=== PATIENT | male | born 1965 | race Caucasian/White ===

== ENCOUNTER 2023-07-13 09:32 | Emergency (ER) | payer BC, SELFPAY ==
[2023-07-13] VITALS (14 sets, daily range): BP systolic 103–132; BP diastolic 55–86; PULSE 48–55; RESP 10–21; TEMP 36.5–36.6; O2SAT 98–100
--- NOTE | ~2023-07-13 | CT_ITS ---
EXAMINATION: CT brain wo con DATE: 07/13/2023 12:52 INDICATION: Bilateral leg numbness. TECHNIQUE: Computed tomography (CT) of the head was performed without intravenous contrast. The mA wa s adjusted according to patient size. Iterative reconstruction technique was employed. The dose-lengt h product was 605.33 mGy-cm. COMPARISON: None FINDINGS: There is no intracranial hemorrhage, acute infarction, or abnormal intracranial mass lesion . The ventricles are normal in size. There is mild mucosal thickening in the paranasal sinuses. The m astoid air cells are normal. The orbits are normal. IMPRESSION: 1. Normal brain. Reviewed, dictated and finalized at location E. S SPECIAL AGENT IMPRESSION: 1. Normal brain.
--- NOTE | ~2023-07-13 | CT_ITS ---
EXAMINATION: CT lumbar spine wo con DATE: 07/13/2023 12:52 INDICATION: Bilateral leg numbness. TECHNIQUE: Computed tomography (CT) of the lumbar spine was performed without intravenous contrast. A utomated exposure control and iterative reconstruction technique were employed. The dose-length produ ct was 849.79 mGy-cm. COMPARISON: None FINDINGS: There are scattered diverticula in the colon. There is wall thickening of the sigmoid colon . Bone alignment is normal. Vertebral body heights are normal. There is mildly decreased disc height at L4-L5 and moderately decreased disc height at L5-S1. The following disc levels are specifically di scussed: L1-L2: The disc does not extend beyond the endplate margin. There is moderate right and mild left fac et joint osteoarthritis. There is no neural foraminal stenosis. There is no central canal stenosis. L2-L3: The disc is bulging. There is mild bilateral facet joint osteoarthritis. There is mild bilater al neural foraminal stenosis. There is mild central canal stenosis. L3-L4: The disc is bulging. There is moderate bilateral facet joint osteoarthritis. There is mild maximilian ateral neural foraminal stenosis. There is mild central canal stenosis. L4-L5: The disc is bulging. There is severe bilateral facet joint osteoarthritis. There is moderate b ilateral neural foraminal stenosis. There is mild central canal stenosis. L5-S1: The disc is bulging. There is mild right and severe left facet joint osteoarthritis. There is moderate left neural foraminal stenosis. There is mild central canal stenosis. IMPRESSION: 1. Moderate lumbar spondylosis. Reviewed, dictated and finalized at location E. MAN
--- NOTE | ~2023-07-13 | MR_ITS ---
EXAMINATION: MR thoracic spine wo/w con, MR lumbar spine wo/w con DATE: 07/13/2023 16:28 INDICATION: Sensory changes with subjective decreased sensation below the waist extending into the bi lateral lower extremities. TECHNIQUE: Magnetic resonance imaging (MRI) of the thoracic and lumbar spine was performed without an d with 17 mL Multihance intravenous contrast. The line 1. Sagittal localizer T1-weighted FSE of the cervicothoracic spine was obtained. Sequences of the tho racic spine included sagittal T2-weighted FSE, sagittal fluid sensitive FSE STIR, sagittal T1-weighte d FSE, axial T1-weighted FSE and axial T2-weighted FSE. Patient terminated the study before the post contrast axial and sagittal sequences the thoracic spine were able to be obtained. 2. Sequences of the lumbar spine included sagittal T2-weighted FSE, sagittal T2-weighted FS FSE, and sagittal and axial T1-weighted FSE. Postcontrast sequences included axial T2-weighted FSE and sagitta l T1-weighted FS FSE. COMPARISON: None FINDINGS: Thoracic spine: Alignment is normal.Vertebral body heights are normal. Small Schmorl's node along the superior endpla daylin of T8 and T9. There are a few T1 and T2 hyperintense hemangiomas at T6, T8 and T11. Marrow signal is otherwise normal. Disc heights are normal. Very small left paracentral disc protrusions at T2-T3 and T6-T7. There is no central canal stenosis in the thoracic spine. There is mild scattered thoracic facet osteoarthritis with no neural foraminal stenosis. There is normal signal in the thoracic cord. Lumbar spine: Alignment is normal. Vertebral body heights are normal. Marrow signal is normal aside from an additio nal T1 and T2 hyperintense hemangioma at L1. Mild disc height loss at L3-L4, at L4-L5 and mild to mod erate disc height loss at L5-S1. The conus medullaris terminates at L1-L2. There is normal signal in the caudal spinal cord. No abnormally enhancing lesions identified. Paravertebral soft tissues are un remarkable. The following disc levels are specifically discussed: T12-L1: Annular fissure and small disc extrusion which extends from the left and right paracentral re gions with disc material extending up to 3 mm cephalad and caudal to the level of the endplate margin s. There is mild bilateral facet joint osteoarthritis. There is no neural foraminal stenosis. There i s mild central canal stenosis. L1-L2: The disc does not extend beyond the endplate margin. There is mild bilateral facet joint osteo arthritis. There is no neural foraminal stenosis. There is no central canal stenosis. L2-L3: Small bilateral disc protrusions. There is mild bilateral facet joint osteoarthritis. There is mild bilateral neural foraminal stenosis. There is no central canal stenosis. L3-L4: Disc is mildly bulging. There is moderate bilateral facet joint osteoarthritis. There is mild left and mild to moderate right neural foraminal stenosis. There is mild central canal stenosis. L4-L5: Disc is bulging. There is moderate left and severe right facet joint osteoarthritis. There is moderate bilateral neural foraminal stenosis. There is mild central canal stenosis. L5-S1: Disc is bulging. There is mild right and moderate left facet joint osteoarthritis. There is mi ld right and moderate to severe left neural foraminal stenosis. There is no central canal stenosis. IMPRESSION: 1. Minimal thoracic and mild to moderate lumbar spondylosis. Reviewed, dictated and finalized at location A. ING MANAGER IMPRESSION: 1. Minimal thoracic and mild to moderate lumbar spondylosis.
--- NOTE | ~2023-07-13 | MR_ITS ---
EXAMINATION: MR cervical spine wo/w con DATE: 07/13/2023 16:27 INDICATION: Sensory changes TECHNIQUE: Magnetic resonance imaging (MRI) of the cervical spine was performed. Patient refused to c omplete the exam and imaging was terminated prior to the planned administration of intravenous contra st. Sequences included sagittal T2-weighted FSE, sagittal T2-weighted FS FSE, sagittal T1-weighted FS E, axial MERGE, axial T1-weighted FSE and axial T2-weighted FSE. COMPARISON: None FINDINGS: Bone alignment is normal. Vertebral body heights are normal. Bone marrow signal intensity is normal . Mild disc height loss at C4-C5 and C5-C6 disc height loss at C3-C4. Annular fissures at C5-C6 C7. C ord signal intensity is normal. Cervical soft tissues are unremarkable. The following disc levels are specifically discussed: C2-C3: The disc does not extend beyond the endplate margin. There is mild bilateral uncovertebral liza nt osteoarthritis. There is moderate right and severe left facet joint osteoarthritis. There is mild bilateral neural foraminal stenosis. There is no central canal stenosis. C3-C4: Disc is bulging. There is moderate bilateral uncovertebral joint osteoarthritis. There is mild right and severe left facet joint osteoarthritis. There is moderate bilateral neural foraminal steno sis. There is mild central canal stenosis with flattening of the ventral surface of the cord. C4-C5: Disc is bulging superimposed small central disc protrusion which indents the central ventral s urface of the cord. There is moderate bilateral uncovertebral joint osteoarthritis. There is moderate right and severe left facet joint osteoarthritis. There is moderate bilateral neural foraminal steno sis. There is mild to moderate central canal stenosis. C5-C6: Disc is bulging. There is moderate bilateral uncovertebral joint osteoarthritis. There is mode rate right and severe left facet joint osteoarthritis. There is mild to moderate bilateral neural for aminal stenosis. There is mild central canal stenosis defects. C6-C7: Small central disc protrusion. There is mild right and moderate left uncovertebral joint osteo arthritis. There is mild left and moderate right facet joint osteoarthritis. There is mild bilateral neural foraminal stenosis. There is mild central canal stenosis. C7-T1: The disc does not extend beyond the endplate margin. There is no uncovertebral joint osteoarth ritis. There is mild left and moderate right facet joint osteoarthritis. There is mild left neural fo raminal stenosis. There is no central canal stenosis. IMPRESSION: 1. Mild cervical stenosis. Reviewed, dictated and finalized at location A. STITCHING MACHINE COLLAR FELLER IMPRESSION: 1. Mild cervical stenosis.
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
[2023-07-13 13:00] LABS: Basophils Percent Auto 0.2 % (0.2-1.2); Eosinophils Percent Auto 0.8 % (0-4.4); Hematocrit 40.5 % (42.0-52.0); Hemoglobin 13.8 g/dL (14.0-18.0); Immature Granulocyte Absolute 0.02 K/mm3 (0.00-0.031); Immature Granulocyte Percent A 0.4 % (0-0.5); Lymphocytes Absolute Auto 1.64 K/mm3 (0.9-3.2); Lymphocytes Percent Auto 34.5 % (18.3-44.2); Mean Corpuscular HGB Conc 34.1 g/dl (32-36); Mean Corpuscular Hemoglobin 29.6 pg (26-34); Mean Corpuscular Volume 86.9 fl (80-100); Mean Platelet Volume 9.8 fl (7.4-10.4); Monocytes Absolute Auto 0.3 K/mm3 (0.1-0.6); Monocytes Percent Auto 5.7 % (2.6-8.5); Neutrophils Absolute Auto 2.8 K/mm3 (1.3-6.7); Neutrophils Percent Auto 58.4 % (45.5-73.1); Platelet Count Result 200 k/mm3 (150-375); Red Blood Count 4.66 M/mm3 (4.6-6.20); Red Cell Distribution Width 13.3 % (11.5-14.5); White Blood Count 4.8 K/mm3 (4.5-10.0)
[2023-07-13 13:01] LABS: Appearance Urine Clear (Clear); Bilirubin Urine Negative (Negative); Blood Urine Negative (Negative); Color Urine Yellow (Yellow); Glucose Urine UA Negative (Negative); Ketones Urine Negative (Negative); Leukocyte Esterase Ur Negative LEU/UL (Negative); Nitrate Urine Negative (Negative); Protein Urine Negative (Negative); Specific Grav Ur 1.008 (1.001-1.035)
[2023-07-13 13:05] LABS: Add Urine Microscopic? NO
[2023-07-13 13:10] LABS: Alanine Aminotransferase 23 U/L (6-50); Albumin Level 3.9 g/dL (3.5-5.1); Alkaline Phosphatase 95 U/L (38-126); Anion Gap 7 mmol/L (8-16); Aspartate Amino Transferase 25 U/L (17-59); Bilirubin,Total 0.6 mg/dL (0.2-1.3); Blood Urea Nitrogen 10 mg/dL (9-20); Calcium 8.8 mg/dL (8.4-10.2); Carbon Dioxide 28 mmol/L (22-30); Chloride 106 mmol/L (98-107); Estimated CRCL calculation 103 ml/min; Estimated Glomerular Filt Rate > 60; Glucose 87 mg/dL (65-110); Potassium 4.1 mmol/L (3.4-5.0); Prothrombin Time 13.3 Seconds (11.1-14.7); Sodium 141 mmol/L (137-145)
[2023-07-13 13:11] LABS: Partial Thromboplastin Time 42.9 SECONDS (22.3-36.8)
[2023-07-13 13:54] LABS: CRP < 0.5 mg/dL (<1.0)
[2023-07-13 13:58] LABS: Immunoglobulin A 138 mg/dL (70-400); Immunoglobulin G 774 mg/dL (700-1600); Immunoglobulin M 125 mg/dL (40-230)
--- NOTE | 2023-07-13 13:59 | PC.NURSE ---
MRI questionnaire filled out by patient. Susi from MRI aware
[2023-07-13 14:01] LABS: Erythrocyte Sedimentation Rate 44 mm/hr (0-20)
--- NOTE | 2023-07-13 16:23 | WPDCN ---
Assessment and Plan Assessment and plan (1) Paresthesia of bilateral legs: Code(s): R20.2 - Paresthesia of skin Status: Acute Plan 58yoM with sudden onset of acute bilateral LE sensory changes. These symptoms are not consistent with any lumbar pathology given the absence of low back or radiating leg pains. Recommend Neurology consult, they have already been contacted by ED provider, and defer workup to them. MRI C spine has been completed, thoracic and brain MRI's are still pending. C spine MRI shows central disc protrusion vs osteophyte complex causing moderate spinal stenosis at C4-5 but there is no T2 signal changes in the spinal cord at this level. No urgent neurosurgical intervention indicated based on results thus far, please notify us should there be any other findings or concern that may need surgical intervention. This case was discuss with my Attending Dr. Marilou BENEDICT Data of Consult Date/Time: 07/13/23 16:24 Primary Care Provider: Tan Montano, Consult Narrative Narrative: Albino Gray is a 58 year old male we were contacted by ER who presented with acute sensory changes in his bilateral legs today. History obtained via communication with ER attending as patient is currently in the MRI scanner. Patient awoke in his usual state today and noticed distal right LE numbness and tingling and then same symptoms occuring in his entire left LE shortly there after, including his perineal region and penis. He denied any low back pain or radicular leg pains. We were consulted after a CT lumbar study was obtained showing degenerative changes, mainly at L5-S1, but no obvious significant stenosis. The patient was bladder scanned in the ER, post-residual was negative after he voided. He has recent hx for Flu A, diagnosed at urgent care on 07/08. It's reported the patient has brisk LE symptoms and normal rectal tone. Meds Home Medications and Allergies Allergies Allergy/AdvReac Type Severity Reaction Status Date / Time metronidazole [From Flagyl] AdvReac Vomiting Verified 07/13/23 09:44 Vital Signs Vital Signs - 24 hr 07/13/23 09:33 07/13/23 10:35 07/13/23 10:45 Temperature 97.7 F Pulse Rate 55 L 48 L 51 L Respiratory Rate 17 14 10 L Blood Pressure 111/80 105/74 Pulse Oximetry 100 98 99 Oxygen Delivery Room Air 07/13/23 10:47 07/13/23 10:48 07/13/23 11:00 Temperature Pulse Rate 48 L 50 L 48 L Respiratory Rate 12 11 L 12 Blood Pressure 116/72 Pulse Oximetry 98 98 99 Oxygen Delivery 07/13/23 11:02 07/13/23 11:03 07/13/23 12:50 Temperature Pulse Rate 49 L 49 L 51 L Respiratory Rate 20 14 21 H Blood Pressure 109/55 L 103/56 L Pulse Oximetry 98 99 98 Oxygen Delivery Results Labs 07/13/23 12:54 07/13/23 12:54 Labs: Short CBC 07/13/23 Range/Units 12:54 WBC 4.8 (4.5-10.0) K/mm3 Hgb 13.8 L (14.0-18.0) g/dL Hct 40.5 L (42.0-52.0) % Plt Count 200 (150-375) k/mm3 BMP 07/13/23 12:54 Sodium 141 Potassium 4.1 Chloride 106 Carbon Dioxide 28 BUN 10 Creatinine 0.70 Glucose 87 Calcium 8.8 Liver Function 07/13/23 Range/Units 12:54 Total Bilirubin 0.6 (0.2-1.3) mg/dL AST 25 (17-59) U/L ALT 23 (6-50) U/L Alkaline Phosphatase 95 (38-126) U/L Albumin 3.9 (3.5-5.1) g/dL Urine 07/13/23 Range/Units 12:54 Urine Color Yellow (Yellow) Urine Appearance Clear (Clear) Urine pH 8.0 (5.0-9.0) Ur Specific [place] 1.008 (1.001-1.035) Urine Protein Negative (Negative) mg/dL Urine Glucose (UA) Negative (Negative) mg/dL
--- NOTE | 2023-07-13 17:15 | WPDNEUROPN ---
Subjective Date/time seen: 07/13/23 17:15 Interval history: Patient's MRI cervical, thoracic, and lumbar spine came back without any cord signal change, so seems less likely to be transverse myelitis. Still considering Guillain [place] syndrome. Unfortunately patient cannot have LP due to him receiving Plavix, so that would have be done tomorrow. If this is GBS, then I am hesitant to start IVIG since he has had prior TIAs and has a history of CAD. IVIG increases his risk for additional thrombotic events. Plasmapheresis would be another option for GBS, which unfortunately we do not do at [place]. Therefore, I would recommend transfer to a tertiary care center for further evaluation and treatment. Objective Data Vital Signs Vital Signs: Vital Signs - 24 hr 07/13/23 09:33 07/13/23 10:35 07/13/23 10:45 Temperature 36.5 C Pulse Rate 55 L 48 L 51 L Respiratory Rate 17 14 10 L Blood Pressure 111/80 105/74 Pulse Oximetry 100 98 99 Oxygen Delivery Room Air 07/13/23 10:47 07/13/23 10:48 07/13/23 11:00 Temperature Pulse Rate 48 L 50 L 48 L Respiratory Rate 12 11 L 12 Blood Pressure 116/72 Pulse Oximetry 98 98 99 Oxygen Delivery 07/13/23 11:02 07/13/23 11:03 07/13/23 12:50 Temperature Pulse Rate 49 L 49 L 51 L Respiratory Rate 20 14 21 H Blood Pressure 109/55 L 103/56 L Pulse Oximetry 98 99 98 Oxygen Delivery Meds/Results Radiology Results: ITS Impressions Head CT 07/13/23 12:52 IMPRESSION: 1. Normal brain. Lumbar Spine CT 07/13/23 12:58 IMPRESSION: 1. Moderate lumbar spondylosis. Cervical Spine MRI 07/13/23 16:28 IMPRESSION: 1. Mild cervical stenosis. ADDENDUM: 07/13/23 [id number] ADDENDUM: The technique section incorrectly states that the study was terminated prior to planned administration of intravenous contrast. The study was performed in conjunction with additional MRI of the thoracic and lumbar spine and patient did receive 17 mL Multihance intravenous contrast. Postcontrast imaging was obtained of the thoracic and lumbar spine. The patient terminated the study prior to obtaining the planned postcontrast images in the cervical spine. Lumbar Spine MRI 07/13/23 16:42 IMPRESSION: 1. Minimal thoracic and mild to moderate lumbar spondylosis. Thoracic Spine MRI 07/13/23 16:42 IMPRESSION: 1. Minimal thoracic and mild to moderate lumbar spondylosis. Labs Labs: Laboratory Results - last 24 hr 07/13/23 07/13/23 12:54 13:34 WBC 4.8 RBC 4.66 Hgb 13.8 L Hct 40.5 L MCV 86.9 MCH 29.6 MCHC 34.1 RDW 13.3 Plt Count 200 MPV 9.8 Immature Gran % (Auto) 0.4 Neut % (Auto) 58.4 Lymph % (Auto) 34.5 [place] % (Auto) 5.7 Eos % (Auto) 0.8 Baso % (Auto) 0.2 Lymph # (Auto) 1.64 [place] # (Auto) 0.3 Eos # (Auto) 0.0 Baso # (Auto) 0.0 Abs Immat Gran (auto) 0.02 Absolute Neuts (auto) 2.8 Absolute Nucleated RBC 0.0 Nucleated RBC % 0.0 ESR 44 H PT 13.3 INR 1.0 APTT 42.9 H Sodium 141 Potassium 4.1 Chloride 106 Carbon Dioxide 28 Anion Gap 7 L BUN 10 Creatinine 0.70 Estim Creat Clear Calc 103 Estimated GFR > 60 Glucose 87 Calcium 8.8 Magnesium 2.0 Total Bilirubin 0.6 AST 25 ALT 23 Alkaline Phosphatase 95 C-Reactive Protein < 0.5 Total Protein 7.0 Albumin 3.9 Urine Color Yellow Urine Appearance Clear Urine pH 8.0 Ur Specific [place] 1.008 Urine Protein Negative Urine Glucose (UA) Negative Urine Ketones Negative Ur Blood (Man) Negative Urine Nitrate Negative Urine Bilirubin Negative Urine Urobilinogen 1.0 Leukocyte Esterase Rfl Negative IgG 774 IgA 138 IgM 125
--- NOTE | 2023-07-13 17:18 | WPDNEURCNPN ---
Assessment and Plan Assessment and plan (1) Paresthesia of bilateral legs: Code(s): R20.2 - Paresthesia of skin Status: Acute Plan Mr. Gray is a 58 year male with a history of prior TIAs, CAD presenting with bilateral lower extremity paraesthesias. My primary concern is Guillain [place] syndrome vs transverse myelitis. Patient's MRI cervical, thoracic, and lumbar spine came back without any cord signal changes, so seems less likely to be transverse myelitis (although could still be in the acute phase of TM). Also with his exam, he has more length dependent decrease in sensation up to his thighs rather than true sensory level, which is more suggestive of GBS rather than myelitis. 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 Fortunately he has good strength still in the lower extremities. Unfortunately patient cannot have LP today due to him receiving Plavix, so that would have be done tomorrow. If this is GBS, then I am hesitant to start IVIG since he has had prior TIAs and has a history of CAD/CT. IVIG increases his risk for additional thrombotic events. Plasmapheresis would be another option for GBS, which unfortunately we do not do at [place]. Therefore, I would recommend transfer to a tertiary care center for further evaluation and treatment. I have discussed plan with patient and he is agreeable as well. Consult date: 07/13/23 Reason for consult: Lower extremity parasthesias HPI: Albino Gray is a 58 year old male with a history of multiple TIAs and CAD in the past presenting due to lower extremity paraesthesias. Patient felt fine when he woke up today. He went about his normal schedule. In the afternoon he was sitting in a chair. He started to get up, when he noticed that he had numbness from his right knee up to the inguinal area. Slowly, he also developed numbness in the left foot that progressed up to the entire leg. When he presented to [facility] ED, he had complete numbness in both lower extremities as well as the genital/perineal region. He has not had any bladder or bowel incontinence, but he does report that it is difficult for him to void the last few drops of urine. He has not had a BM yet today. He denies any weakness in the lower extremities, but is having trouble with his balance, and therefore having difficulty with walking. He denies any symptoms in his upper extremities. He has not had any vaccinations in the past few months. He did have flu last week with fever and URI symptoms. In the ED, he had CT head that was normal. CT lumbar spine showed moderate spondylosis but no acute findings. LP was recommended but unable to be done since patient had taken Plavix today. MRI of the complete spine done with and without contrast. No signal change noted in the spinal cord, no evidence of contrast enhancement. MRI cervical spine showed mild cervical stenosis and MRI thoracic/lumbar spine showed minimal thoracic spondylosis and mild to moderate lumbar spondylosis. Of note, patient has a history of TIAs in the past as well as CAD, and CT. Review of Systems Review of Systems: All systems reviewed & are unremarkable except as noted in HPI and below Meds Home Medications and Allergies Allergies Allergy/AdvReac Type Severity Reaction Status Date / Time metronidazole [From Flagyl] AdvReac Vomiting Verified 07/13/23 09:44 Vital Signs Vital Signs - 24 hr 07/13/23 09:33 07/13/23 10:35 07/13/23 10:45 Temperature 36.5 C Pulse Rate 55 L 48 L 51 L Respiratory Rate 17 14 10 L Blood Pressure 111/80 105/74 Pulse Oximetry 100 98 99 Oxygen Delivery Room Air 07/13/23 10:47 07/13/23 10:48 07/13/23 11:00 Temperature Pulse Rate 48 L 50 L 48 L Respiratory Rate 12 11 L 12 Bl
--- NOTE | 2023-07-13 19:04 | PC.NURSE ---
attempted to call report, left message on [employer]el[employer] phone
== END 2023-07-13 20:34 | disposition short-term general hospital (02) ==
LOC: ANHED 12:26
PROVIDERS: Emergency Provider Student in an Organized Health Care Education/Training Program; PCP Internal Medicine
DX: R20.2 Paresthesia of skin (principal); I25.10 Atherosclerotic heart disease of native coronary artery without angina pectoris; M21.372 Foot drop, left foot; Z86.73 Personal history of transient ischemic attack (TIA), and cerebral infarction without residual deficits; Z79.02 Long term (current) use of antithrombotics/antiplatelets; M47.816 Spondylosis without myelopathy or radiculopathy, lumbar region; M47.814 Spondylosis without myelopathy or radiculopathy, thoracic region; M48.02 Spinal stenosis, cervical region
CPT/HCPCS: 36415; 70450; 72131; 72156; 72157; 72158; 80053; 81003; 82784; 83735; 85025; 85610; 85652; 85730; 86140; 99285; A9577